=== PATIENT | female | born 1995 | race African-American/Black ===

== ENCOUNTER 2020-07-09 18:24 | Day surgery (SDC) | payer BC ==
[2020-07-09] MEDS ORDERED: hydrALAZINE 20 MG/ML VIAL SLOW IVP PRN (20:09)
[2020-07-09] MEDS ORDERED: Promethazine HCl 25 MG/ML VIAL IM PRN (20:11)
[2020-07-09] MEDS ORDERED: pyridOXINE 50 MG (B6) TAB PO SCH (20:15)
[2020-07-09] MEDS ORDERED: Lactated Ringer's 1,000 ML IV SCH (20:15)
[2020-07-09] MEDS ORDERED: Doxylamine 25 MG TAB PO SCH (20:15)
[2020-07-09] MEDS ORDERED: Bicitra 30 ML UDCUP PO SCH (20:30)
[2020-07-09 21:17] LABS: #Eosinphils 0.1 10x3/uL (0.0-0.5); #Monocytes 0.7 10x3/uL (0.0-1.1); #Neutrophils 5.8 10x3/uL (1.5-8.4); %Basophils 0.3 % (0.0-2.0); %Eosinophils 0.8 % (0.0-6.0); %Lymphocytes 24.1 % (18.0-47.0); %Monocytes 8.2 % (0.0-10.0); %Neutrophils 65.8 % (40.0-75.0); Hemoglobin 10.7 g/dL (12.0-15.5); Mean Corpuscular HGB CONC 31.7 g/dL (32.0-36.0); Mean Corpuscular Hemoglobin 30.3 pg (27.0-33.0); Mean Corpuscular Volume 95.8 fl (81.6-98.3); Platelet Count 284 10x3/uL (150-450); RBC Distribution Width 12.4 % (11.5-14.5); Red Blood Cell (RBC) Count 3.53 10x6/uL (3.90-5.03); White Blood Cell (WBC) Count 8.8 10x3/uL (3.5-10.5)
[2020-07-09 21:31] LABS: Anion Gap 14 mmol/L (10-20); BUN (Urea Nitrogen) 5 mg/dL (7.0-18.7); Calc. Creatinine Clearance 0 mL/min (70-130); Calcium 8.4 mg/dL (7.8-10.44); Carbon Dioxide 21 mmol/L (22-29); Chloride 103 mmol/L (98-107); Glucose 90 mg/dL (70-105); Potassium 3.6 mmol/L (3.5-5.1); Sodium 134 mmol/L (136-145)
[2020-07-09 22:01] LABS: Bilirubin Neg (Negative); Blood, Urine Negative (Negative); Clarity Clear (Clear); Glucose, Urine (Dipstick) 250 mg/dL (Negative); Ketone, Urine 150 mg/dL (Negative); Leukocyte 100 (Negative); Nitrite Negative (Negative); Protein, Urine (Dipstick) 15 mg/dl (Neg-Trace); Specific Gravity, Urine 1.015 (1.002-1.036); pH, Urine 6.5 (5.0-9.0)
[2020-07-09 22:13] LABS: RBC/HPF 0-3 HPF (0-3)
[2020-07-09 22:17] LABS: Bacteria/HPF Rare-Few HPF (None Seen)
== END 2020-07-09 23:19 | disposition home or self-care (01) ==
LOC: CSHLD/OP 18:24
PROVIDERS: ATTEND Obstetrics & Gynecology
DX: O21.2 Late vomiting of pregnancy (principal); Z3A.29 29 weeks gestation of pregnancy
CPT/HCPCS: 59025; 80048; 81001; 85025; 96360; 99283; J2550

== ENCOUNTER 2021-02-06 21:02 | Emergency (ER) | payer OTHER ==
[2021-02-06] MEDS ORDERED: Acetaminophen 325 MG TAB ONE (22:00)
[2021-02-06] MEDS ORDERED: Boostrix 0.5 ML (Tdap) VIAL ONE (22:00)
[2021-02-06] MEDS ORDERED: Lidocaine 1% w/Epinephrine 1:100K 20 ML VIAL ONE (22:00)
== END 2021-02-06 22:29 | disposition home or self-care (01) ==
LOC: CSHERS 21:02
DX: S01.81XA Laceration without foreign body of other part of head, initial encounter (principal); Y08.09XA Assault by strike by other specified type of sport equipment, initial encounter; Z23 Encounter for immunization
CPT/HCPCS: 12011; 70486; 90471; 90715

== ENCOUNTER 2021-04-03 10:07 | Emergency (ER) | payer OTHER ==
[2021-04-03] MEDS ORDERED: Ketorolac Tromethamine 30 MG/ML VIAL ONE (10:42)
[2021-04-03] MEDS ORDERED: Ondansetron ODT 4 MG TAB ONE (10:42)
[2021-04-03 10:49] LABS: Bilirubin Neg (Negative); Blood, Urine Negative (Negative); Clarity Clear (Clear); Glucose, Urine (Dipstick) 100 mg/dL (Negative); Ketone, Urine Negative (Negative); Leukocyte Negative (Negative); Nitrite Negative (Negative); Protein, Urine (Dipstick) Negative (Neg-Trace); Specific Gravity, Urine 1.015 (1.002-1.036); Urobilinogen Normal mg/dL (Less than 2); pH, Urine 6.5 (5.0-9.0)
[2021-04-03 10:53] LABS: Pregnancy Test - Urine (BHCG) Negative (Negative); Pregu Control Background? CLEAR/WHITE (CLR/WHITE); Pregu Control Bar Appear? YES (CONTROL BAR); Specific Gravity 1.015 (1.002-1.036)
[2021-04-04 09:51] LABS: SARS-CoV-2 PCR by NAA Not Detected (NotDetected)
== END 2021-04-03 11:23 | disposition home or self-care (01) ==
LOC: CSHERS 10:07
DX: B34.9 Viral infection, unspecified (principal); Z20.822 Contact with and (suspected) exposure to COVID-19
CPT/HCPCS: 81003; 81025; 96372; 99284; J1885; Q0162; U0003; U0005

== ENCOUNTER 2021-07-20 04:29 | Emergency (ER) | payer OTHER ==
[2021-07-20] MEDS ORDERED: HYDROcodone/Acetaminophen 5/325 mg Tablet ONE (05:40)
[2021-07-20] MEDS ORDERED: Ibuprofen 200 MG TAB ONE (05:40)
== END 2021-07-20 07:34 | disposition home or self-care (01) ==
LOC: CSHERS 04:29
DX: S06.0X0A Concussion without loss of consciousness, initial encounter (principal); S01.01XA Laceration without foreign body of scalp, initial encounter; S60.032A Contusion of left middle finger without damage to nail, initial encounter; S60.042A Contusion of left ring finger without damage to nail, initial encounter; S80.02XA Contusion of left knee, initial encounter; S80.01XA Contusion of right knee, initial encounter; Y04.0XXA Assault by unarmed brawl or fight, initial encounter
CPT/HCPCS: 12001; 70450

== ENCOUNTER 2021-07-25 12:18 | Emergency (ER) | payer OTHER | END 2021-07-25 13:05 | disposition home or self-care (01) | LOC: CSHERS 12:18 | DX: S01.01XD Laceration without foreign body of scalp, subsequent encounter (principal) ==

== ENCOUNTER 2022-03-20 15:31 | Emergency (ER) | payer OTHER ==
[2022-03-20 17:37] LABS: Bilirubin Neg (Negative); Blood, Urine 25 (Negative); Clarity Cloudy (Clear); Glucose, Urine (Dipstick) 250 mg/dL (Negative); Ketone, Urine Negative (Negative); Leukocyte 500 (Negative); Nitrite Negative (Negative); Protein, Urine (Dipstick) 15 mg/dl (Neg-Trace)
[2022-03-20] MEDS ORDERED: Ondansetron ODT 4 MG TAB ONE (17:38)
[2022-03-20 17:41] LABS: Pregnancy Test - Urine (BHCG) Negative (Negative); Pregu Control Background? CLEAR/WHITE (CLR/WHITE); Pregu Control Bar Appear? YES (CONTROL BAR)
[2022-03-20] MEDS ORDERED: Ibuprofen 200 MG TAB ONE (17:41)
[2022-03-20 17:58] LABS: RBC/HPF 0-3 HPF (0-3)
[2022-03-20 17:59] LABS: Bacteria/HPF 1+ HPF (None Seen); Squamous Epithelial 0-3 HPF (0-3)
== END 2022-03-20 18:38 | disposition home or self-care (01) ==
LOC: CSHERS 15:31
DX: B34.9 Viral infection, unspecified (principal)
CPT/HCPCS: 36416; 81003; 81015; 81025; 87804; 99283; Q0162

== ENCOUNTER 2022-05-01 06:34 | Emergency (ER) | payer OTHER ==
[2022-05-01] MEDS ORDERED: Metoclopramide HCl 10 MG TAB ONE (07:36)
[2022-05-01] MEDS ORDERED: Ketorolac Tromethamine 30 MG/ML VIAL ONE (07:39)
== END 2022-05-01 08:25 | disposition home or self-care (01) ==
LOC: CSHERS 06:34
DX: K08.89 Other specified disorders of teeth and supporting structures (principal); R51.9 Headache, unspecified; F17.290 Nicotine dependence, other tobacco product, uncomplicated
CPT/HCPCS: 96372; 99283; J1885

== ENCOUNTER 2022-05-05 22:11 | Emergency (ER) | payer OTHER ==
[2022-05-05] MEDS ORDERED: Ketorolac Tromethamine 30 MG/ML VIAL ONE (22:54)
[2022-05-06] MEDS ORDERED: Lidocaine 5% Patch TD SCH (00:15)
== END 2022-05-06 00:28 | disposition home or self-care (01) ==
LOC: CSHERS 22:11
DX: S22.32XA Fracture of one rib, left side, initial encounter for closed fracture (principal); Y04.0XXA Assault by unarmed brawl or fight, initial encounter
CPT/HCPCS: 96372; J1885

== ENCOUNTER 2022-07-21 17:22 | Emergency (ER) | payer OTHER ==
[2022-07-21] MEDS ORDERED: Lidocaine 1% (PF) 30 ML VIAL ONE (19:04)
== END 2022-07-21 20:16 | disposition home or self-care (01) ==
LOC: CSHERS 17:22
DX: L02.214 Cutaneous abscess of groin (principal)
CPT/HCPCS: 10060; J2001

== ENCOUNTER 2022-08-01 22:15 | Emergency (ER) | payer OTHER ==
[2022-08-01] MEDS ORDERED: SUMAtriptan Succinate 6 MG/0.5 ML VIAL ONE (23:03)
[2022-08-01] MEDS ORDERED: Ketorolac Tromethamine 30 MG/ML VIAL ONE (23:03)
== END 2022-08-02 00:17 | disposition home or self-care (01) ==
LOC: CSHERS 22:15
DX: G43.909 Migraine, unspecified, not intractable, without status migrainosus (principal)
CPT/HCPCS: 96361; 96372; 96374; J1885; J3030

== ENCOUNTER 2022-10-01 14:37 | Emergency (ER) | payer OTHER ==
[2022-10-01 16:23] LABS: SARS-CoV-2 NAA Rapid Test Not Detected (NotDetected)
== END 2022-10-01 17:29 | disposition home or self-care (01) ==
LOC: CSHERS 14:37
DX: J03.90 Acute tonsillitis, unspecified (principal); Z20.822 Contact with and (suspected) exposure to COVID-19
CPT/HCPCS: 71045; 87081; 87430

== ENCOUNTER 2022-11-26 00:41 | Emergency (ER) | payer OTHER ==
[2022-11-26] MEDS ORDERED: Acetaminophen 500 MG TAB ONE (01:38)
[2022-11-26] MEDS ORDERED: Ondansetron PF 4 MG/2 ML Vial ONE (01:38)
[2022-11-26 01:54] LABS: #Basophils 0.1 10x3/uL (0.0-0.2); #Eosinphils 0.1 10x3/uL (0.0-0.5); #Monocytes 0.6 10x3/uL (0.0-1.1); #Neutrophils 2.7 10x3/uL (1.5-8.4); %Basophils 0.7 % (0.0-2.0); %Eosinophils 1.4 % (0.0-6.0); %Lymphocytes 51.9 % (18.0-47.0); %Monocytes 7.9 % (0.0-10.0); Hematocrit 37.7 % (34.9-44.5); Mean Corpuscular HGB CONC 31.8 g/dL (32.0-36.0); Mean Corpuscular Hemoglobin 31.3 pg (27.0-33.0); Mean Corpuscular Volume 98.2 fl (81.6-98.3); Mean Platelet Volume 9.9 fl (7.4-10.4); Platelet Count 304 10x3/uL (150-450); RBC Distribution Width 11.9 % (11.5-14.5); Red Blood Cell (RBC) Count 3.84 10x6/uL (3.90-5.03); White Blood Cell (WBC) Count 7.2 10x3/uL (3.5-10.5)
[2022-11-26 02:03] LABS: BHCG - Serum Negative (NEGATIVE); Pregs Control Background? CLEAR/WHITE (CLR/WHITE); Pregs Control Bar Appear? YES (CONTROL BAR)
[2022-11-26 02:07] LABS: ALT (SGPT) 17 U/L (8-55); AST (SGOT) 24 U/L (5-34); Albumin 4.1 g/dL (3.5-5.0); Alkaline Phosphatase 59 U/L (40-110); Anion Gap 12 mmol/L (10-20); BUN (Urea Nitrogen) 9 mg/dL (7.0-18.7); Bilirubin, Total 0.4 mg/dL (0.2-1.2); Calc. Creatinine Clearance 0 mL/min (70-130); Calcium 8.8 mg/dL (7.8-10.44); Carbon Dioxide 25 mmol/L (22-29); Chloride 106 mmol/L (98-107); Estimated GFR 108; Globulin 2.9 g/dL (2.4-3.5); Glucose 72 mg/dL (70-105); Lipase 36 U/L (8-78); Potassium 3.5 mmol/L (3.5-5.1); Sodium 139 mmol/L (136-145)
[2022-11-26 04:16] LABS: Bilirubin Neg (Negative); Blood, Urine Negative (Negative); Clarity Clear (Clear); Glucose, Urine (Dipstick) Normal (Negative); Ketone, Urine Negative (Negative); Leukocyte Negative (Negative); Nitrite Negative (Negative); Protein, Urine (Dipstick) Negative (Neg-Trace); pH, Urine 6.5 (5.0-9.0)
[2022-11-26 05:14] LABS: Bacteria/HPF None Seen HPF (None Seen); CAUTI Indications for Culture Pelvic or flank pain; RBC/HPF None Seen HPF (0-3); Squamous Epithelial 0-3 HPF (0-3); WBC/HPF None Seen HPF (0-3)
[2022-11-26 05:15] LABS: Urine Culture Reflex No No
== END 2022-11-26 05:02 | disposition home or self-care (01) ==
LOC: CSHERS 00:41
DX: R10.84 Generalized abdominal pain (principal); R11.0 Nausea; R51.9 Headache, unspecified
CPT/HCPCS: 80053; 81001; 83690; 84703; 85025; 96374; J2405